=== PATIENT | female | born 1950 | race Caucasian/White ===

== ENCOUNTER 2023-03-15 09:55 | Outpatient (CLI) | payer MEDICARE, OTHER ==
[~2023-03-15] VITALS: Ht 152.4 cm; Wt 72.6 kg
[2023-03-15] MEDS ORDERED: albuterol 2.5 MG/3 ML nebule NEB ONE (10:20)
[2023-03-15 10:30] VITALS: PULSE 67; RESP 18; O2SAT 94
== END 2023-03-15 23:59 | disposition home or self-care (01) ==
LOC: RT 09:55
PROVIDERS: ATTEND Internal Medicine
DX: J44.9 Chronic obstructive pulmonary disease, unspecified (principal); R94.2 Abnormal results of pulmonary function studies; Z87.891 Personal history of nicotine dependence
CPT/HCPCS: 94060; 94760